=== PATIENT | female | born 2000 | race Caucasian/White ===

== ENCOUNTER 2021-04-26 12:51 | Emergency (ER) | payer OTHER, SELFPAY ==
[2021-04-26 12:52] VITALS: BP 143/97; PULSE 113; RESP 18; TEMP 37.2; O2SAT 99; BMI 29.1
--- NOTE | 2021-04-26 13:01 | EX.ED.DYSGE1 ---
HPI History of Present Illness Chief Complaint: Rash Informant: patient Onset/Context/Timing Onset: Today Context: Sudden Onset Timing: Continuous Current Severity: Moderate Maximum Severity: Severe Narrative Narrative: The patient is a 20-year-old female with medical history significant for seasonal allergies who presents with allergic reaction. The patient states she was working in the [employer] today. She is not sure which she was exposed to. She states she got back in her car and began to have hives on her neck. She states she felt like her tongue was swelling and her eyes were very itchy. She states she was unable to open them. She went to urgent care. She was given Benadryl but sent here. She states she took them about 2-1/2 hours ago to help with the hives, but she was still having significant swelling. Prior similar symptoms: No Recent Illness/Hospitalization: No PFSH PFSH Home Medications levocetirizine [Xyzal] 5 mg PO DAILY #30 tab 04/26/21 [Rx Last Taken Unknown] prednisone 10 mg PO DAILY #63 tab 04/26/21 [Rx Last Taken Unknown] Allergy/AdvReac Type Severity Reaction Status Date / Time No Known Allergies Allergy Verified 04/26/21 13:33 Surgical History (Updated 04/26/21 @ 13:34 by Patti Obregon) Hx of appendectomy Social History Smoking Status: Never smoker ROS ROS ED Constitutional Constitutional ED: Denies chills or fever(s) Eyes Eyes: Denies blurry vision or change in vision ENT ENT ED: Denies ear pain or sore throat Cardiovascular Cardiovascular: Denies chest pain or palpitations Respiratory/Chest Respiratory/Chest: Denies cough, dyspnea or dyspnea on exertion Gastrointestinal Gastrointestinal: Denies abdominal pain, nausea or vomiting Genitourinary Genitourinary ED: Denies dysuria or urinary frequency Musculoskeletal Musculoskeletal: Denies arthralgias or myalgias Integumentary Denies rash Neurologic Neurologic: Denies headache(s) or paresthesias Psychiatric Psychiatric: Denies anxiety or depression Endocrine Endocrinology: Denies polydipsia or polyuria Allergic/Immunologic Allergic/Immunologic ED: Reports urticaria EXAM Physical Exam Const Vital Signs: 04/26/21 12:52 04/26/21 13:34 Temperature 98.9 F Temperature Source Oral Pulse Rate 113 H 90 Respiratory Rate 18 17 Blood Pressure 143/97 H 104/66 Blood Pressure Mean 112 78 Pulse Ox 99 100 Oxygen Delivery Method Room Air Room Air Positive well nourished and well developed General Appearance ED: well developed HEENT Reports normocephalic, head/scalp atraumatic and moist mucous membranes HEENT Narrative: Posterior pharynx is widely patent without angioedema Eyes PERRL and EOMs intact bilaterally Eyes Narrative: Erythema around the face Neck no lymphadenopathy and supple General: Negative for tenderness Chest Wall inspection of chest normal Resp normal respiratory effort and clear to auscultation bilaterally Cardio regular rate, regular rhythm and no murmurs GI normal to inspection, nondistended, normoactive bowel sounds Palpation: Negative for tender, guarding or rebound tenderness present Back/Spine no CVA tenderness Cervical Spine: Negative for cervical spine tenderness Thoracic Spine / Upper Back: Negative for thoracic spinal tenderness Extremity normal to inspection General Extremety ED: Negative for tenderness Neuro oriented x3 and CN's II-XII intact bilaterally Neuro Narrative: No focal deficits appreciated. Sensorium / Orientation: alert Psych mental status grossly normal Skin no rashes or lesions noted, no wounds and skin turgor normal MDM MDM MDM Narrative Medical decision making narrative: Patient presents with rather significant facial swelling consistent with a topical allergic reaction. There is no angioedema. She has no hypotension or tachycardia. IV was established. Patient was treated for allergic reaction. Her urticaria has faded. She is starting to feel improved, but still is having swelling around her eyes. I do feel that the prednisone burst is appropriate. I am also going to start the patient on an antihistamine and give her referral for outpatient allergy testing. The patient is comfortable with this plan of care. Impression 1. Allergic reaction Discharge Plan Triage Chief Complaint: Rash ED Provider: Vasyl Christine Dx/Rx/DC Orders Instructions: ED General Allergic Reactions Prescriptions: New prednisone 10 MG tablet 10 mg PO DAILY Qty: 63 RF: 0 levocetirizine [Xyzal] 5 mg tablet 5 mg PO DAILY Qty: 30 RF: 0
[2021-04-26] MEDS: DiphenhydrAMINE 50 MG/ML Syringe 25 MG IV (13:26)
[2021-04-26] MEDS: Famotidine 200 MG/20 ML MDV 20 MG in 0.9% Normal Saline (Pres. free 8 ML 300 MG IV (13:28)
[2021-04-26] MEDS: MethylPREDNISolone 125 MG/2 ML Vial IV (13:29)
[2021-04-26 13:34] VITALS: BP 104/66; PULSE 90; RESP 17; O2SAT 100
[2021-04-26 14:43] VITALS: BP 106/71; PULSE 71; RESP 14; O2SAT 100
== END 2021-04-26 14:44 | disposition home or self-care (01) ==
LOC: ED 13:52
PROVIDERS: Emergency Provider Emergency Medicine
DX: T78.40XA Allergy, unspecified, initial encounter (principal)
CPT/HCPCS: 96365; 96375; 99282; J7040; A4216; J3490